=== PATIENT | male | born 1955 | race Caucasian/White ===

== ENCOUNTER 2017-02-05 12:07 | Emergency (ER) | payer OTHER ==
[~2017-02-05] VITALS: Ht 170.2 cm; Wt 64.0 kg
[~2017-02-05 12:07] MED LIST: ACET1TAB40 PO; HYDR-906 PO; METH-417 PO
[2017-02-05 12:38] VITALS: Ht 170.2 cm; Wt 64.0 kg
[2017-02-05] MEDS ORDERED: SOD CHLORIDE 0.9% 1,000 ML IV STA (14:53)
[2017-02-05] MEDS ORDERED: morphine 4 MG/ML VIAL IV STA (14:53)
[2017-02-05] MEDS ORDERED: ONDANSETRON 4 MG INJ IV STA ×2 (14:53→17:55)
[2017-02-05 16:10] LABS: ADD SCAN DIFF NO; EOSINOPHILS # 0.1 10^3/ul (0.0-0.5); EOSINOPHILS % 2.5 % (0.0-7.0); HAAIG REFLEX REFLEX FILED; HEMATOCRIT 38.3 % (42.0-52.0); HEMOGLOBIN 12.9 g/dl (14.0-18.0); LYMPHOCYTES # 1.4 10^3/ul (0.8-2.9); LYMPHOCYTES % 33.8 % (15.0-51.0); MEAN CORPUSCULAR HEMOGLOBIN 31.4 pg (29.0-33.0); MEAN CORPUSCULAR HGB CONC 33.7 g/dl (32.0-37.0); MEAN CORPUSCULAR VOLUME 93.2 fl (82.0-101.0); MEAN PLATELET VOLUME 10.4 fl (7.4-10.4); MONOCYTE # 0.6 10^3/ul (0.3-0.9); MONOCYTES % 13.8 % (0.0-11.0); NEUTROPHILS % 48.9 % (39.0-77.0); PLATELET COUNT 176 10^3/UL (140-415); RED BLOOD COUNT 4.11 10^6/ul (4.70-6.10); RED CELL DISTRIBUTION WIDTH 13.7 % (11.5-14.5)
[2017-02-05 16:18] LABS: INR 1.07; PROTIME 13.9 Sec (12.2-14.2); PT RATIO 1.1
[2017-02-05 16:19] LABS: PARTIAL THROMBOPLASTIN TIME 30.8 Sec (25.0-35.0)
[2017-02-05 16:31] LABS: ALANINE AMINOTRANSFERASE 83 IU/L (13-69); ALBUMIN 3.9 g/dl (3.3-4.9); ALBUMIN/GLOBULIN RATIO 0.92; ALKALINE PHOSPHATASE 148 IU/L (42-121); AMYLASE 93 U/L (11-123); ANION GAP 11 (8-16); ASPARTATE AMINO TRANSFERASE 86 IU/L (15-46); BILIRUBIN,INDIRECT 0.1 mg/dl (0-1.1); BILIRUBIN,TOTAL 0.1 mg/dl (0.2-1.3); BLOOD UREA NITROGEN 14 mg/dl (7-20); CALCIUM 8.8 mg/dl (8.4-10.2); CARBON DIOXIDE 29 mmol/L (21-31); CHLORIDE 101 mmol/L (97-110); CREATININE 0.68 mg/dl (0.61-1.24); GLUCOSE 88 mg/dl (70-220); POTASSIUM 4.6 mmol/L (3.5-5.1); SODIUM 136 mmol/L (135-144); TOTAL PROTEIN 8.1 g/dl (6.1-8.1)
[2017-02-05 16:35] LABS: ADD UMIC NO; URINE BILIRUBIN (Dip) NEGATIVE (NEGATIVE); URINE BLOOD (Dip) NEGATIVE (NEGATIVE); URINE COLOR LT. YELLOW (YELLOW); URINE GLUCOSE (Dip) NEGATIVE (NEGATIVE); URINE KETONES (Dip) NEGATIVE (NEGATIVE); URINE LEUKOCYTE ESTERASE (Dip) NEGATIVE (NEGATIVE); URINE NITRITE (Dip) NEGATIVE (NEGATIVE); URINE TOTAL PROTEIN (Dip) NEGATIVE (NEGATIVE); URINE UROBILINOGEN (Dip) 0.2 E.U./dL (0.1-1.0)
[2017-02-05] MEDS ORDERED: SOD CHLORIDE 0.9% 100 ML ONE (16:41)
[2017-02-05] MEDS ORDERED: IOHEXOL 300MG/ML 150 ML BTL ONE (16:41)
[2017-02-05 16:45] LABS: TROPONIN-I < 0.012 ng/ml (0.00-0.12)
[2017-02-05 17:19] LABS: HEPATITIS B CORE ANTIBODY REACTIVE (NEGATIVE)
--- NOTE | 2017-02-05 17:39 | RADRPT ---
PROCEDURE: CT abdomen and pelvis with contrast. CLINICAL INDICATION: Abdominal pain. TECHNIQUE: CT of the abdomen/pelvis was performed utilizing axial images with reconstructions in s agittal and coronal planes following the intravenous administration of 90 cc of Omnipaque-[address] The administered radiation dose is CTDI 7.98 mGy, DLP 382.06 mGy-cm. COMPARISON: Noncontrast CT of the abdomen/pelvis from November 26, 2014. FINDINGS: Lung bases: There is an enlarged 2.5 cm left lower lobe bullae which previously measured 1.6 cm. Th ere is also a left lower lobe bleb.. There are bibasilar interstitial thickening. The heart is nor mal size without pericardial effusion. CT ABDOMEN: Gastrointestinal tract: There is no bowel obstruction.The appendix is normal size without inflammato ry changes.No abnormal colonic wall thickening is identified.There is no pneumoperitoneum. Liver: The liver is normal in size without focal lesion.There is no intrahepatic ductal dilatation. Gallbladder: The patient is status post cholecystectomy. Pancreas: The pancreas is grossly unremarkable. Spleen: The spleen is normal in size without focal lesion. Kidneys: The kidneys are normal in size and contour. There is resolution of previous noted nonobstru ctive left renal calculi. No renal calculi are identified.There is no evidence of hydronephrosis. Adrenal glands: The bilateral adrenal glands are unremarkable. Retroperitoneum: There is no retroperitoneal adenopathy.The aorta is normal in caliber. CT PELVIS: Pelvic organs: The prostate is normal size. Bladder: The bladder is unremarkable. There is no pelvic free fluid.No pelvic adenopathy is identified. Osseous structures: No destructive lytic or blastic osseous lesion is identified. There is mild grad e 1 anterolisthesis of L5-S1. IMPRESSION: 1. No acute abdominal pathology. 2. Status post cholecystectomy. 3. Resolution of previous noted nonobstructive left renal calculi. 4. Findings suspicious for early nonspecific interstitial fibrosis. There is also an enlarged 2.5 c m left lower lobe bullae. Further findings as detailed above. RPTAT: PP .Javier Hernandez MD, MD Date Time Electronically viewed and signed by .Javier Hernandez MD, MD on 02/05/2017 17:39 .F/
[2017-02-05] MEDS ORDERED: HYDROmorphONE 1 MG/ML SYG IV STA (17:55)
--- NOTE | 2017-02-05 18:53 | ERD ---
ER Documentation Chief Complaint Date/Time DATE: 02/05/17 TIME: 18:32 Chief Complaint liver ca, referred from md to Er paIN 03/29 HPI This is a 61-year-old male that presents to the emergency department with generalized weakness that has progressively gotten worse over the past 6 months. The patient indicates he has a history of bipolar, alcohol abuse and previous heroin use. He indicates he however has not used heroin for over several years and he has not consumed any ethanol for 6 months. He is on 65 mg p.o. of methadone on a daily basis for the past 6 months. The patient indicates on October 22, 2016 he was placed in hospice after he was diagnosed with end-stage liver carcinoma and hepatitis on October 21, 2016. The patient indicates he has had difficulty with his insurance and currently is homeless and lives in his van. His primary care physician is Dr. Wally Groves who he saw, prior to arrival, I was instructed to come to the emergency department as his symptoms have progressively worsened and he is unable to receive any analgesic medication. The patient indicates that over the past 48 hours he has had severe abdominal pain, more present in the left upper and lower quadrant, nonradiating, 10 out of 10 in intensity. He has had a significant amount of weight loss but denies productive or nonproductive cough. He has no shortness of breath at rest or exertion. He denies any hemoptysis hematemesis or melanotic stools. ROS All systems reviewed and are negative except as per history of present illness. Medications Home Meds Active Scripts Hydrocodone/Acetaminophen ([place] 5-325 Tablet) 1 Each Tablet, 1 TAB PO Q6H Y for PAIN, #20 TAB Prov:KACY MINA 02/05/17 Reported Medications Methadone Hcl* (Methadone*) 5 Mg Tab, 3 MG PO DAILY, TAB PATIENT SAID HE TOOK 65MG TODAY AT 0900, CALLED [employer] TO VERIFY AND GAVE OUR FAX NUMBER BUT STILL DIDN'T RECEIVE ANY INFO YET. SPOKEWITH DIANA GIMENEZ OF [employer]. 06/06/16 Discontinued Reported Medications Acetaminophen with Codeine (Acetaminophen-Cod #3 Tablet) 1 Each Tablet, 1 EACH PO DAILY Y for PAIN, TAB 06/06/16 Discontinued Scripts Hydrocodone/Acetaminophen ([place] 5-325 Tablet) 1 Each Tablet, 1 EACH PO QID, # 14 TAB Prov:MERARI MAYFIELD MD 06/09/16 Hydrocodone/Acetaminophen ([place] 5-325 Tablet) 1 Each Tablet, 1 EACH PO TID for PAIN, #10 TAB Prov:SARAH BETH JUDGE 06/06/16 Allergies Allergies: Coded Allergies: No Known Drug Allergies (Verified Allergy, Unknown, 06/27/15) PMhx/Soc History of Surgery: No Anesthesia Reaction: No Hx Neurological Disorder: No Hx Respiratory Disorders: No Hx Cardiac Disorders: No Hx Psychiatric Problems: No Hx Miscellaneous Medical Probl: Yes (Acute HEPATITIS C 10/2016) Hx Alcohol Use: No Hx Substance Use: No Hx Tobacco Use: No Smoking Status: Unknown if ever smoked Physical Exam Vitals Vital Signs Date Time Temp Pulse Resp B/P Pulse Ox O2 Delivery O2 Flow Rate FiO2 02/05/17 19:06 98.7 58 18 141/72 100 Room Air 02/05/17 16:15 98.7 54 18 145/90 100 Room Air 02/05/17 12:38 98.6 73 17 141/80 99 Physical Exam Constitutional:Well-developed. Cachectic. HEENT:Normocephalic. Atraumatic.Pupils were equal round reactive to light. Moist mucous membranes.No tonsillar exudates. Neck: No nuchal rigidity. No lymphadenopathy. No posterior cervical spine tenderness or step-offs. Respiratory: Not using accessory muscles of respiration.Lungs were clear to auscultation bilaterally. No rhonchi. No rales. No wheezing. Cardiovascular: Regular rate regular rhythm.No murmurs. No rubs were appreciated.S1, S2 normal. Distal pulses are palpable 2+ bilaterally. GI: Abdomen was soft. Tenderness in the left upper quadrant and left lower quadrant. Hepatomegaly. Non Distended. No pulsatile abdominal masses or bruits. No rebound. No guarding. Bowel sounds were present and normal. Muscle skeletal: Full range of motion of both the upper and lower extremities bilaterally.Normal muscle tone.No assymetrical calf tenderness or swelling. Skin: No petechia, no purpura. No lesions on the palms or the soles of the feet. No maculopapular rash. Psoriasis of the abdomen NEURO: Patient was alert, awake, orientated x3.No facial droop. Gait observed and normal with no ataxia.Speech had regular rate and rhythm. No focal neurological deficits. Result Diagram: 02/05/17 1540 02/05/17 1540 Results 24 hrs Laboratory Tests Test 02/05/17 15:40 02/05/17 16:05 White Blood Count 4.010^3/ul Red Blood Count 4.1110^6/ul Hemoglobin 12.9g/dl Hematocrit 38.3% Mean Corpuscular Volume 93.2fl Mean Corpuscular Hemoglobin 31.4pg Mean Corpuscular Hemoglobin Concent 33.7g/dl Red Cell Distribution Width 13.7% Platelet Count 49669^3/UL Mean Platelet Volume 10.4fl Neutrophils % 48.9% Lymphocytes % 33.8% Monocytes % 13.8% Eosinophils % 2.5% Basophils % 1.0% Nucleated Red Blood Cells % 0.0/100WBC Neutrophils # 2.010^3/ul Lymphocytes # 1.410^3/ul Monocytes # 0.610^3/ul Eosinophils # 0.110^3/ul Basophils # 0.010^3/ul Nucleated Red Blood Cells # 0.010^3/ul Prothrombin Time 13.9Sec Prothrombin Time Ratio 1.1 INR International Normalized Ratio 1.07 Activated Partial Thromboplast Time 30.8Sec Sodium Level 136mmol/L Potassium Level 4.6mmol/L Chloride Level 101mmol/L Carbon Dioxide Level 29mmol/L Anion Gap 11 Blood Urea Nitrogen 14mg/dl Creatinine 0.68mg/dl Glucose Level 88mg/dl Calcium Level 8.8mg/dl Total Bilirubin 0.1mg/dl Direct Bilirubin 0.00mg/dl Indirect Bilirubin 0.1mg/dl Aspartate Amino Transf (AST/SGOT) 86IU/L Alanine Aminotransferase (ALT/SGPT) 83IU/L Alkaline Phosphatase 148IU/L Troponin I < 0.012ng/ml Total Protein 8.1g/dl Albumin 3.9g/dl Globulin 4.20g/dl Albumin/Globulin Ratio 0.92 Amylase Level 93U/L Lipase 44U/L Hepatitis B Surface Antigen NEGATIVE Hepatitis B Core Total Antibody REACTIVE Hepatitis C Antibody REACTIVE Urine Color LT. YELLOW Urine Clarity CLEAR Urine pH 6.0 Urine Specific [place] 1.020 Urine Ketones NEGATIVE Urine Nitrite NEGATIVE Urine Bilirubin NEGATIVE Urine Urobilinogen 0.2 E.U./dL Urine Leukocyte Esterase NEGATIVE Urine Hemoglobin NEGATIVE Urine Glucose NEGATIVE% Urine Total Protein NEGATIVE Current Medications Medications (Trade) Dose Ordered Sig/Nisha Route PRN Reason Start Time Stop Time Status Last Admin Dose Admin Sodium Chloride (NS) 1,000 ml @ 1,000 mls/hr Q1H STAT IV 02/05/17 14:53 02/05/17 15:52 DC 02/05/17 16:05 Morphine Sulfate (morphine) 4 mg ONCE STAT IV 02/05/17 14:53 02/05/17 14:55 DC 02/05/17 16:05 Ondansetron HCl (Zofran Inj) 4 mg ONCE STAT IV 02/05/17 14:53 02/05/17 14:55 DC 02/05/17 16:04 IV Flush 10 ml 10 ml STK-MED ONCE .ROUTE 02/05/17 16:41 02/05/17 16:42 DC 02/05/17 17:06 Sodium Chloride (NS) 100 ml @ ud STK-MED ONCE .ROUTE 02/05/17 16:41 02/05/17 16:42 DC 02/05/17 17:06 Iohexol (Omnipaque 300mg/ ml) 150 ml STK-MED ONCE .ROUTE 02/05/17 16:41 02/05/17 16:42 DC 02/05/17 17:06 Hydromorphone HCl (Dilaudid) 1 mg ONCE STAT IV 02/05/17 17:55 02/05/17 17:57 DC 02/05/17 18:38 Ondansetron HCl (Zofran Inj) 4 mg ONCE STAT IV 02/05/17 17:55 02/05/17 17:57 DC 02/05/17 18:37 Procedures/MDM This patient presented to the emergency department with abdominal pain and was seen and evaluated by myself. My differential diagnosis included but was not limited to abdominal aortic aneurysm, appendicitis, pancreatitis, perforated peptic ulcer, perforated viscus, Boerhaaves syndrome or visceral pain such as diverticulitis, DKA, esophagitis, hepatitis or bowel obstruction. The patient was placed on a hospital monitor, continuous pulse oximetry, and IV access was established by nursing staff. The patient received intravenous morphine and Zofran for analgesic control. Obtained a CT scan of the abdomen which was read by the radiologist and myself and indicated followin. No acute abdominal pathology. 2. Status post cholecystectomy. 3. Resolution of previous noted nonobstructive left renal calculi. 4. Findings suspicious for early nonspecific interstitial fibrosis. There is also an enlarged 2.5 cm left lower lobe bullae. I obtained a 12-lead EKG tracing to rule out atypical myocardial infarction. 12 Lead EKG tracing ordered and reviewed by myself showed: Sinus bradycardia 57 bpm and no arrhythmia. WA interval normal. QRS duration normal. No ST segment elevation No ST segment depression. No changes consistent with acute ischemia. Observation Note: Time: 4 hours Family Hx: No Hypertension Evaluation: Multiple exams showed improving symptoms and no evidence of peritoneal signs or worsening of the patient's symptoms. He received a further dose of analgesic medication which included IV Dilaudid. 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 He also indicated that 6 months ago he was diagnosed with hepatitis and therefore hepatitis panel was positive for hepatitis B and C however again this was not acute. I gave him various names in which he could follow up with. I did write a prescription for [place] for the patient if needed for analgesic control. The patient was discharged home in fair condition. They were instructed to return to the emergency department at any time if there was any worsening of their condition. The patient stated they would follow up with their PCP in the next 24-48 hours to initiate a suitable medication regimen under the care of their PCP as well as to allow their PCP to monitor any drug reactions. The patient was discharged home with prescriptions after they gave informed consent to the new medication. They were also fully informed by myself on the adverse effects and adverse drug interactions in order to provide adequate safeguards to prevent possible adverse reactions to medications. Departure Diagnosis: Primary Impression: Abdominal pain Abdominal location: unspecified location Qualified Code: R10.9 - Abdominal pain, unspecified location Additional Impression: Hepatitis B Viral hepatitis chronicity: unspecified Hepatic coma status: without hepatic coma Hepatitis delta agent presence: without delta-agent Qualified Code: B19.10 - Hepatitis B infection without delta agent without hepatic coma, unspecified chronicity Condition: Fair KACY MINA Feb 05, 2017 18:42
[2017-02-05] MEDS ORDERED: HYDR-906 PO (18:56)
[2017-02-05 21:00] VITALS: BP 134/66; PULSE 58; RESP 18; TEMP 98.7
== END 2017-02-05 21:05 | disposition home or self-care (01) ==
LOC: E/R 12:07
DX: R10.32 Left lower quadrant pain (principal); R10.12 Left upper quadrant pain; B19.10 Unspecified viral hepatitis B without hepatic coma; Z85.05 Personal history of malignant neoplasm of liver
CPT/HCPCS: 74177; 80053; 81003; 82150; 83690; 84484; 85025; 85610; 85730; 86704; 86709; 86803; 87040; 87086; 87340; 93005; J1170; J2270; J2405; J7030; Q9967; Z7610; 36415; 96374; 96375; 96376